=== PATIENT | female | born 2000 | race Caucasian/White ===

== ENCOUNTER 2023-09-07 13:32 | Emergency (ER) | payer MEDICAID ==
[~2023-09-07] VITALS: Ht 157.5 cm; Wt 100.0 kg
[2023-09-07 13:40] VITALS: PULSE 120
[2023-09-07 13:49] VITALS: BP 135/73; TEMP 98.7; O2SAT 97
[2023-09-07] MEDS: ACETAMINOPHEN 325MG TABLET PO ONE (15:39)
== END 2023-09-07 15:40 | disposition home or self-care (01) ==
LOC: ER 13:56
DX: M25.532 Pain in left wrist (principal); R20.2 Paresthesia of skin; E11.9 Type 2 diabetes mellitus without complications
CPT/HCPCS: 73110; 99283